=== PATIENT | male | born 1965 | race African-American/Black ===

== ENCOUNTER 2017-12-15 16:22 | Inpatient (IN) | payer OTHER ==
[~2017-12-15] VITALS: Ht 190.5 cm; Wt 182.8 kg
[2017-12-15] VITALS (9 sets, daily range): BP systolic 99–152; BP diastolic 62–91
--- NOTE | 2017-12-15 16:24 | ER Report ---
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 Has had 2 epsiodes of diarrhea on day one and resolved. Still having the vomiting. No abdominal pain. no fevers. no chills. Has some epigastric burning with the vomiting. No known sick contacts "you never know what people have at truck stops". Came in because he feels dehydrated. No abdominal surgery REVIEW OF SYSTEMS: Constitutional: No fever, no chills. Eyes: No discharge. ENT: No sore throat. Cardiovascular: No chest pain, no palpitations. Respiratory: No cough, no shortness of breath. Gastrointestinal: No abdominal pain, + vomiting, + diarrhea Genitourinary: No hematuria. Musculoskeletal: No back pain. Skin: No rashes. Neurological: No headache. Allergies: Coded Allergies: No Known Drug Allergies (Unverified , 12/15/17) Home Meds Reported Medications Hydrochlorothiazide (HYDROCHLOROTHIAZIDE) 25 Mg Tablet, 1 TAB PO QDAY, TAB 12/15/17 Lisinopril (LISINOPRIL) 20 Mg Tablet, 20 MG PO QDAY, TAB 12/15/17 Amlodipine Besylate (AMLODIPINE BESYLATE) 5 Mg Tablet, 1 TAB PO QDAY, TAB 12/15/17 Past Medical/Surgical History Pmhx: htn PshX: knee Reviewed Nurses Notes: Yes Old Medical Records Reviewed: Yes Hx Smoking: No Hx Alcohol Use: No Constitutional Vital Sign - Last 24 Hours 12/15/17 12/15/17 12/15/17 12/15/17 16:23 16:30 16:39 16:45 Temp 97.8 Pulse 100 88 Resp 20 B/P (MAP) 92/70 70/33 (45) 108/74 (85) 119/93 (102) Pulse Ox 92 12/15/17 12/15/17 12/15/17 12/15/17 17:00 17:15 17:30 17:45 Pulse 88 87 B/P (MAP) 101/74 (83) 111/62 (78) 116/75 (89) 116/90 (99) Pulse Ox 95 94 12/15/17 12/15/17 18:00 18:15 Pulse 87 B/P (MAP) 125/103 (110) 124/62 (82) Intake and Output 12/15/17 12/15/17 12/16/17 15:00 23:00 07:00 Intake Total 1050 ml Balance 1050 ml Physical Exam General Appearance: The patient is alert, has no immediate need for airway protection and no signs of toxicity. Eyes: Pupils equal and round no pallor or injection, EOMI ENT: no pharyngeal erythema or exudates, Mucous membranes are moist Respiratory: There are no retractions, lungs are clear to auscultation. Cardiovascular: Regular rate and rhythm. pulses are equal and symmetrical, + systolic ejection murmur Gastrointestinal: Abdomen is soft and non tender, no masses, bowel sounds normal, no guarding, no rigidity or rebound, + obese Neurological: Cranial nerves II-XII grossly intact, no sensory or motor loss Skin: Warm and dry, no rashes. Musculoskeletal: Neck is supple non tender, no vertebral tenderness Extremities are nontender, non swollen and have full range of motion. DIFFERENTIAL DIAGNOSIS: After history and physical exam differential diagnosis was considered for gastroenteritis, dehydration Medical Decision Making Data Points Result Diagram: 12/16/17 0512 12/16/17 0512 Laboratory Hematology Test 12/15/17 16:38 12/15/17 17:15 12/15/17 17:17 Hemoglobin A1c 13.4 % (4.6-6.0) Troponin I 0.027 ng/ml Lipase 184 U/L (23-300) Acetone, Qualitative Small Phosphorus Level 8.4 mg/dl (2.5-4.5) Iron Level 73 ug/dl (49-181) Total Iron Binding Capacity 239 ug/dl (261-497) Percent Iron Saturation 30.5 % Ferritin 598 ng/ml (18-464) Blood Gas Puncture Site Right radial Blood Gas Patient Temperature 97.8 DEGREES Arterial Blood pH 7.30 (7.35-7.45) Arterial Blood Partial Pressure CO2 36 mmHg (32-37) Arterial Blood Partial Pressure O2 77 mmHg (60-80) Arterial Blood HCO3 18 mmol/L (20-26) Arterial Blood Oxygen Saturation 94 % (92-100) Arterial Blood Base Excess -8.0 mmol/L Ty Test Acceptable Oxygen Liters/Minute 1.5l Chemistry Test 12/15/17 16:38 12/15/17 17:15 8/23/18 17:17 Hemoglobin A1c 13.4 % (4.6-6.0) Troponin I 0.027 ng/ml Lipase 184 U/L (23-300) Acetone, Qualitative Small Phosphorus Level 8.4 mg/dl (2.5-4.5) Iron Level 73 ug/dl (49-181) Total Iron Binding Capacity 239 ug/dl (261-497) Percent Iron Saturation 30.5 % Ferritin 598 ng/ml (18-464) Blood Gas Puncture Site Right radial Blood Gas Patient Temperature 97.8 DEGREES Arterial Blood pH 7.30 (7.35-7.45) Arterial Blood Partial Pressure CO2 36 mmHg (32-37) Arterial Blood Partial Pressure O2 77 mmHg (60-80) Arterial Blood HCO3 18 mmol/L (20-26) Arterial Blood Oxygen Saturation 94 % (92-100) Arterial Blood Base Excess -8.0 mmol/L Ty Test Acceptable Oxygen Liters/Minute 1.5l Toxicology Test 12/15/17 16:38 Acetone, Qualitative Small ED Course/Re-evaluation Clinical Indication for ER IV: Hydration, IV Access ED Course Lab called with critical blood sugar. Will obtain abg and acetone level. 12/15/2017 6:00:[address] Arrington who will admit pt to ICU. At this time pt does not have an insulin gtt. He wants to hold the drip to see how pt does with fluids and the sq insulin. states he will start a gtt in icu if pt does not respond. Decision to Disposition Date: Dec 15, 2017 Decision to Disposition Time: 18:00 Depart Departure Latest Vital Signs Vital Signs Date Time Temp Pulse Resp B/P (MAP) Pulse Ox O2 Delivery O2 Flow Rate FiO2 12/15/17 18:15 124/62 (82) 12/15/17 18:00 87 12/15/17 17:30 94 12/15/17 16:23 97.8 20 Impression: Primary Impression: Hyperglycemia Additional Impressions: Renal insufficiency Diabetes mellitus, new onset Condition: Critical Disposition: Admitted from ER Problem Qualifiers SPARKLE LEES DO Dec 15, 2017 16:24
[2017-12-15] MEDS ORDERED: FAMOTIDINE(*) 20MG/50ML PREMIX 50 ML IVPB ONE (16:28)
[2017-12-15] MEDS ORDERED: LR(*) 1000 ML BAG 1,000 ML IV ONE (16:28)
[2017-12-15] MEDS ORDERED: ONDANSETRON 4 MG/2 ML VIAL IVP ONE (16:30)
[2017-12-15 16:44] LABS: PLATELET COUNT, AUTOMATED 394 K/uL (150-450)
[2017-12-15] MEDS ORDERED: LISI20TA29 PO (17:20)
[2017-12-15] MEDS ORDERED: AMLO-96 PO (17:20)
[2017-12-15] MEDS ORDERED: HYDR-2966 PO (17:20)
--- NOTE | 2017-12-15 17:20 | EKG ---
FACILITY: [facility] [place]IENT NAME: CORTEZ DUPREE : [id number] MR: [id number] V: [id number] EXAM DATE: ORDERING PHYSICIAN: SPARKLE LEES TECHNOLOGIST: Test Reason : VOMITING Blood Pressure : / mmHG Vent. Rate : 090 BPM Atrial Rate : 090 BPM P-R Int : 152 ms QRS Dur : 098 ms QT Int : 400 ms P-R-T Axes : 071 013 063 degrees QTc Int : 489 ms Normal sinus rhythm Voltage criteria for left ventricular hypertrophy Nonspecific ST and T wave abnormality , peaked Twave V1-3 Prolonged QT Abnormal ECG No previous ECGs available Confirmed by Bill Nath ([id number]) on 12/15/2017 9:10:40 PM Referred By: Confirmed By:Bill Chavira
[2017-12-15] MEDS ORDERED: NS(*) 0.9% 1000 ML BAG 1,000 ML IV ONE (17:30)
[2017-12-15] MEDS ORDERED: INSU HUM REG 100 U/ML(ER ONLY) 10 ML VIAL SUBQ ONE (17:40)
[2017-12-15] MEDS ORDERED: NS(*) 0.9% 1000 ML BAG 1,000 ML IV PRN (19:25)
[2017-12-15] MEDS ORDERED: ONDANSETRON 4 MG/2 ML VIAL IVP PRN (19:55)
[2017-12-15] MEDS ORDERED: PROMETHAZINE 25 MG/ML 1 ML AMP IVP PRN (19:55)
[2017-12-15] MEDS ORDERED: INSULIN HUM REG 100 UN/ML 3 ML 100 UNIT in NS(*) 0.9% 100 ML BAG 99 ML IV SCH (20:00)
[2017-12-15] MEDS ORDERED: INSU HUM REG 100 U/ML(ER ONLY) 10 ML VIAL IV ONE (20:00)
[2017-12-15] MEDS ORDERED: PANTOPRAZOLE SOD 40 MG IV VIAL IVP SCH (20:00)
[2017-12-15] MEDS: INSULIN HUM REG 100 UN/ML 3 ML 100 UNIT in NS(*) 0.9% 100 ML BAG 99 ML IV SCH (20:07)
--- NOTE | 2017-12-15 20:34 | History & Physical ---
History of Present Illness Chief Complaint n/v dehydration History of Present Illness 52M with PMHx HTN presented after 3 days n/v. Noted diarrhea at onset and thought had gastroenteritis. Stopped in [place] in [place] and was Dx with Strep throat. Feeling worse on arrival in [place] and presented to [facility] ER. Glucose in 900's, HCO3 18, AGAP 26. Denies Hx DM though further questioning reports previously on metformin which PCP stopped because A1c was decreased. Reports 40lb weight loss over last 3 months with diet changes. History Problems: (1) HTN (hypertension) (2) DM (diabetes mellitus) (3) Obesity (BMI 30-39.9) Home Meds Reported Medications Hydrochlorothiazide (HYDROCHLOROTHIAZIDE) 25 Mg Tablet, 1 TAB PO QDAY, TAB 12/15/17 Lisinopril (LISINOPRIL) 20 Mg Tablet, 20 MG PO QDAY, TAB 12/15/17 Amlodipine Besylate (AMLODIPINE BESYLATE) 5 Mg Tablet, 1 TAB PO QDAY, TAB 12/15/17 Allergies: Coded Allergies: No Known Drug Allergies (Unverified , 12/15/17) Patient History: Diabetes mellitus (DM) FH: HTN (hypertension) Hx Smoking: No Hx Alcohol Use: No Hx Substance Use Disorder: No Review of Systems All Systems Reviewed/Normal: Yes, Except as Noted Neurological: Weakness Gastrointestinal: Nausea, Vomiting Exam Vital Signs Vital Signs Date Time Temp Pulse Resp B/P (MAP) Pulse Ox O2 Delivery O2 Flow Rate FiO2 12/15/17 19:30 84 16 129/91 (104) 95 Nasal Cannula 2.0 12/15/17 19:16 98.0 General Appearance: Alert, Awake, No Acute Distress Neuro: No Gross deficits Eyes: PERRLA ENT: Other (Dry mucosa) Neck: No Masses Cardiovascular: Normal Rhythm & Peripheral Pulses (3/6 systolic murmur VIKI sternal border.) Respiratory: No Respiratory Distress, Clear to Auscultation Chest: No Tenderness GI: Abd Soft and Non-Tender Lymph: Cervical Nodes Benign Musculoskeletal: No Weakness/Pain Extremities: Soft and Non Tender, Warm, Pulses, Perfused; No Edema Integumentary: Skin Intact without Lesion / Mass Psych: Alert & Oriented X3 Medical Decision Making Data Points Result Diagram: 12/15/17 1638 12/15/17 1840 EKG / Imaging Monitor Interpretation: Sinus Tachycardia Assessment and Plan Problems: (1) DKA (diabetic ketoacidosis) Assessment & Plan: HCO3 18, agap 26, glucose >900 on admission, pH 7.3. Appears more like HHS than DKA given type II but has significant anion gap, could be 2/2 starvation ketosis since no PO intake for 3 days. Admit to ICU, insulin gtt, IV NS, monitor K and glucose. K 5.4 on admission no need to give K at this time. Hgb A1c pending, c-peptide pending. (2) JAIMIE (acute kidney injury) Assessment & Plan: Per pt reports that his number believed to be 1.4, Cr on admission 3.4. Making urine, monitor urine output. IV fluid resuscitation. (3) HTN (hypertension) Assessment & Plan: Hypotensive on arrival, IV fluid resuscitation. Hold lisinopril/HCTZ, amlodipine. (4) Microcytosis Assessment & Plan: Unclear etiology, may be hemoconcentrated and is anemic. Recommend outpt colonoscopy if no previous given age. Iron panel pending. Venous Thromboembolism Antithrombotics Is Pt On Any Antithrombotics?: No (scd only) Exam Sepsis Risk: No Definite Risk ELI LUIGI SULLIVAN DO Dec 15, 2017 20:34
[2017-12-15] MEDS: PANTOPRAZOLE SOD 40 MG TABEC PO SCH (21:27)
[2017-12-16] VITALS (25 sets, daily range): BP systolic 87–169; BP diastolic 34–77; Ht 190.5 cm; Wt 182.8 kg
[2017-12-16] MEDS ORDERED: NS(*) 0.9% 1000 ML BAG 1,000 ML IV PRN (00:34)
[2017-12-16] MEDS: INSULIN HUM REG 100 UN/ML 3 ML 100 UNIT in NS(*) 0.9% 100 ML BAG 99 ML IV SCH ×2 (00:57→07:00)
[2017-12-16] MEDS ORDERED: KCL/D1/2NS 20 MEQ 1000 ML 1,000 ML IV PRN (04:10)
[2017-12-16 05:47] LABS: PLATELET COUNT, AUTOMATED 317 K/uL (150-450)
[2017-12-16] MEDS ORDERED: INSULIN GLARGINE 100 U/ML 3 ML PEN SUBQ SCH ×2 (08:00→08:53)
[2017-12-16] MEDS: INSULIN HUM LISPRO 100 UN/ML 3 ML VIAL SUBQ PRN ×3 (08:58→15:39)
--- NOTE | 2017-12-16 11:01 | Hospitalist Progress Note ---
Subjective Progress Notes Subjective The patient denies new complaints. Physical Exam Vital Signs Date Time Temp Pulse Resp B/P (MAP) Pulse Ox O2 Delivery O2 Flow Rate FiO2 12/16/17 10:00 76 14 132/67 (88) 94 Nasal Cannula 1.0 12/16/17 08:00 97.9 Intake and Output 12/16/17 07:00 Intake Total 6706 ml Output Total 875 ml Balance 5831 ml Intake Oral 3840 ml IV Total 2866 ml Output Urine Total 875 ml General Appearance: Alert, Awake, No Acute Distress Neuro: No Gross deficits Eyes: PERRLA Cardiovascular: Regular Rate and Rhythm Respiratory: Clear to Auscultation GI: Soft and Non-Tender Extremities: Warm, Perfused, Other (No edema.) Integumentary: Skin Intact without Lesion / Mass Psych: Appropriate Mood & Affect Result Diagram: 12/16/1751112/16/17511 Monitor Interpretation: Sinus Tachycardia Assessment and Plan Problems: (1) DKA (diabetic ketoacidosis) Assessment & Plan: On admission, HCO3 18, agap 26, glucose >900, pH 7.3. Appears more like HHS than DKA given type II but has significant anion gap, could be 2/2 starvation ketosis since no PO intake for 3 days. Admitted to ICU, insulin gtt, IV fluids given and electrolytes monitored closely. HgA1c ordered and is pending. Glucose down to the 200s overnight. Anion gap improved. Will start Lantus 20u today with breakfast with SSI and adjust doses as needed. Continue to monitor glucoses closely. Diabetic teaching ordered. His creatinine remains elevated and he will most likely not be a candidate for oral medications. Discussed this with the patient. He gets his care at the [facility]. He was seen 3 weeks ago for med refill but no labs were done. Last lab was at least a year ago per his report. With his 40# weight loss it is likely his sugars have been high for some time. He has been on metformin in the past per his report. (2) JAIMIE (acute kidney injury) Assessment & Plan: Per pt reports that his number believed to be 1.4, Cr on admission 3.4. Increased today to 3.8. Renal US pending. Making urine, continue to monitor urine output. Avoid renal toxins. (3) HTN (hypertension) Assessment & Plan: Hypotensive on admission, IV fluid resuscitation. Hold lisinopril/HCTZ, amlodipine. (4) Microcytosis Status: Chronic Assessment & Plan: The patient's RBCs are high. MCV is low. Hgb is normal. Iron level is normal. Possible thalassemia. Time Spent on Plan of Care: < 30 min Exam Sepsis Risk: No Definite Risk ROSALVA GOULD MD Dec 16, 2017 11:01
[2017-12-16] MEDS ORDERED: INS HUM REG* 100 U/ML(ER ONLY) 100 UNIT in NS(*) 0.9% 100 ML BAG 99 ML IV SCH (15:30)
[2017-12-16] MEDS ORDERED: INS HUM REG* 100 U/ML(ER ONLY) 100 UNIT in NS(*) 0.9% 100 ML BAG 99 ML IV PRN (15:35)
[2017-12-16] MEDS: NS(*) 0.9% 1000 ML BAG 1,000 ML IV PRN ×2 (15:39→23:30)
--- NOTE | 2017-12-16 15:40 | RADIOLOGY IMAGING REPORT ---
FACILITY: [facility] - [place] PATIENT NAME: Brock Gibbons : 1965 MR: [id number] V: [id number] EXAM DATE: ORDERING PHYSICIAN: LUIGI SULLIVAN TECHNOLOGIST: Location: [facility] Patient: Brock Gibbnos : 1965 Visit/Account:[id number] Date of Sevice: 12/16/2017 EXAMINATION: Renal ultrasound 12/16/2017 6:41 AM HISTORY: JAIMIE. COMPARISON STUDIES: none FINDINGS: Kidneys: Right kidney- 13.9 x 5.6 x 6.6 cm, normal parenchymal thickness and echogenicity. Anechoic 3.9 cm ex ophytic lower pole cortical cyst. Left kidney- 11.7 x 7.1 x 7.3 cm, normal parenchymal thickness and echogenicity. Uniform and symmetric blood flow in each kidney by Doppler ultrasound. Measured resistive indices ar e 0.67 on the right and 0.66 on the left. Hydronephrosis: none Bladder: Minimal (less than 5 mL) urine in the bladder post void, not likely clinically significant. Abdominal aorta and IVC: Patent by Doppler ultrasound IMPRESSION: 1. Unremarkable ultrasound appearance of the kidneys apart from an exophytic benign-appearing 3.9 cm lower pole cortical cyst on the right. 2. No significant postvoid residual in the bladder. Report Dictated By: Daryn Elias MD at 12/16/2017 3:34 PM Report E-Signed By: Daryn Elias MD at 12/16/2017 3:37 PM WSN:[id number]
[2017-12-16] MEDS: INSULIN HUM REG 100 UN/ML 3 ML 100 UNIT in NS(*) 0.9% 100 ML BAG 100 ML IV SCH (21:29)
[2017-12-16] MEDS: PANTOPRAZOLE SOD 40 MG TABEC PO SCH (22:24)
[2017-12-17] VITALS (24 sets, daily range): BP systolic 85–148; BP diastolic 41–90
[2017-12-17] MEDS: NS(*) 0.9% 1000 ML BAG 1,000 ML IV PRN ×4 (07:20→23:28)
--- NOTE | 2017-12-17 10:00 | Hospitalist Progress Note ---
Subjective Progress Notes Subjective This patient was admitted for hyperglycemia and renal failure. He had no acute issues overnight. Patient Complains of: Cardiovascular: No: Chest Pain Respiratory: No: Shortness of Breath Physical Exam Vital Signs Date Time Temp Pulse Resp B/P (MAP) Pulse Ox O2 Delivery O2 Flow Rate FiO2 12/17/17 09:08 77 12/17/17 09:00 13 94/41 (58) 91 Room Air 12/17/17 08:13 1.0 12/17/17 08:00 97.9 Intake and Output 12/17/17 07:00 Intake Total 6449.7 ml Output Total 550 ml Balance 5899.7 ml Intake Oral 3660 ml IV Total 2789.7 ml Output Urine Total 550 ml # Voids 1 # Bowel Movements 1 Neuro: No Gross deficits Eyes: PERRLA Cardiovascular: Regular Rate and Rhythm, Other (Systolic murmur.) Respiratory: Clear to Auscultation GI: Soft and Non-Tender Extremities: No Edema Integumentary: No Cyanosis Result Diagram: 12/16/17 0512 12/17/17 0530 Item Value Date Time Urine Hyaline Casts Many /LPF H 12/17/17 0756 Monitor Interpretation: Sinus Tachycardia Assessment and Plan Problems: (1) DKA (diabetic ketoacidosis) Assessment & Plan: He did have a glucose of >900 and was mildly acidotic at admission. He was treated with IV fluid and IV insulin. An attempt was made to stop IV insulin yesterday, but failed. He remains on an insulin infusion through today, and it is our intention to continue this through the better part of today. (2) JAIMIE (acute kidney injury) Assessment & Plan: He was significantly dehydrated and hypotensive at admission, which has likely resulted in acute tubular necrosis. We have increased his fluids and will continue to monitor his output and creatinine. (3) ATN (acute tubular necrosis) (4) HTN (hypertension) Assessment & Plan: He is usually on chronic treatment with amlodipine, lisinopril, and hydrochlorothiazide. All of this have been on hold secondary to his renal function and intermittent hypotension. (5) Microcytosis Status: Chronic Assessment & Plan: The patient's RBCs are high. MCV is low. Hgb is normal. Iron level is normal. Possible thalassemia. (6) Heart murmur Assessment & Plan: He does have a new heart murmur. An echocardiogram has been ordered. (7) Strep pharyngitis Assessment & Plan: He reports that he was diagnosed with "Strep throat" a few days ago at the [facility]. He has taken 3 days worth of antibiotics. A throat culture has been ordered. Exam Sepsis Risk: No Definite Risk Problem Qualifiers (1) HTN (hypertension): Hypertension type: essential hypertension Qualified Codes: I10 - Essential (primary) hypertension AMILCAR ARIAS DO Dec 17, 2017 10:00
--- NOTE | 2017-12-17 13:38 | Medical Nutrition Therapy ---
Nutrition Anthropometrics Height (Inches): 75.00 Height (Calculated Centimeters: 190.682315 Weight (Pounds): 406 Weight (Calculated Kilograms): 184.584 Kole Nutrition Score: Adequate Kole Nutrition Risk Score: 21 Dietary Referral Nutrition Risk Factors: Nutrition Risk Comment: Physical Findings Physical Appearance: Morbidly Obese 40+ Skin Appearance Skin Appearance: Edema Edema Location Modifier: Edema Location: Type of Edema: Degree of Edema: Gastrointestinal Symptoms GI Symtoms: Change in Bowel Pattern Tube Present: Bowel Sounds: Recent Bowel Pattern: Stool Characteristics: Nutritional Diagnosis Nutritional Risk Acuity 1: Acute/ES Renal Nutritional Risk Acuity 2: Blood Glucose > 300mg/dl, DKA Nutritional Risk Acuity 3: Nausea, Morbid Obesity Nutritional Risk Acuity 4: Modified Diet Past Medical History: Hx of HTN, DM, Obesity Nutritional Acuity: 1-High Nutrition Diagnosis: Inconsistent Carb. Intake Nutrition Etiology: Skipping Meals Nutrition Problem/Etiology/Sym: Inconsistent carb intake related to skipping meals as evidenced by elevated blood glc levels between 900's-200's Adjusted Energy Requirement Re: 2300 (5068-4954 adj for obesity (hamwi for wt x 1.3-1.4 AF [place])) Protein Requirement: 75 (75-82 (adj for wt)) Fluid Requirement: 2250 Diet Type: Diabetic Nutrition Intervention: Cont diet as ordered, Encourage intake Nutritional Education Nutrition Education Topic: Diabetic Nutrition Learning Barriers: Cognitive Teaching Methods: Discussion, Handout Response to Teaching: Verbalize understanding, Reinforcement needed Teaching Recipient: Patient Nutrition Counseling: I met with pt to talk about following diabetic diet. Pt was very sleepy but it sounded like he understood the basic concept of limiting carbohydrate foods. He said that his wt loss was due to decreasing "white foods" and that his girlfriend has been helping. We talked about getting between 45-60g carb per meal and 15-30g for snacks. we talked about appropriate foods. Since he was so sleepy, he may need reinforcement. -EK Nutrition Monitoring & Eval RD Patient Assessment Time: [address] Assessment Type: RD Education Patient Nutrition Acuity: 1-High Follow Up Date: Dec 17, 2017 Nutritional Comment: 12/16. Admitted for nausea, vomitting, diarrhea for 3 days, and dehydration. Pt is being treated for diabetic ketoacidosis, acute renal injury, HTN, and Microcytosis. Pts glucose on admission was >900. Pt denied hx of DM. Noted pt was on Metformin in the past but PCP stopped that b/c A1C was decreased. Pt has not had intake for the past 3 days. Is currenlty on diabetic diet, with no meals to report at this time. Random BG is elevated 225, but is improving. Pt is receiving 10 units Lantus SUBQ and 2-10 Lispro SS SUBQ. Other noteable labs include: elevated BUN 73 and Creatinine 3.8. Pt is 75in, 390lbs, and a BMI of 48.7, morbid obese. Will monitor pt intake, and BG. 12/17 Met with pt for basic DM education. He was very sleepy and may need further education, but he seems to understand basic concept. Currently on ADA diet with intake of 75-100% of meals. Notable labs include Na 131, BUN 78, creatinine 4.8, glc ranging 260-306 today (in the 500's yesterday). Will cont to monitor and encourage intake. -CRYSTAL CROW Dec 17, 2017 13:38
[2017-12-17] MEDS: INSULIN HUM REG 100 UN/ML 3 ML 100 UNIT in NS(*) 0.9% 100 ML BAG 100 ML IV SCH (17:13)
[2017-12-17] MEDS ORDERED: SALINE 0.65% NAS SPR 44 ML BTL PRN (17:40)
[2017-12-17] MEDS: PANTOPRAZOLE SOD 40 MG TABEC PO SCH (21:15)
[2017-12-17] MEDS ORDERED: methylPREDNIS SUCC 125 MG/2ML IVP ONE (23:35)
[2017-12-18] VITALS (24 sets, daily range): BP systolic 111–159; BP diastolic 58–99
[2017-12-18] MEDS: NS(*) 0.9% 1000 ML BAG 1,000 ML IV PRN ×3 (05:13→20:55)
[2017-12-18 05:45] LABS: PLATELET COUNT, AUTOMATED 216 K/uL (150-450)
[2017-12-18] MEDS ORDERED: GLIMEPIRIDE 2 MG TAB PO SCH (09:00)
--- NOTE | 2017-12-18 10:51 | Medical Nutrition Therapy ---
Nutrition Anthropometrics Height (Inches): 75.00 Height (Calculated Centimeters: 190.224359 Weight (Pounds): 406 Weight (Calculated Kilograms): 184.584 Kole Nutrition Score: Adequate Kole Nutrition Risk Score: 21 Dietary Referral Nutrition Risk Factors: Nutrition Risk Comment: Physical Findings Physical Appearance: Morbidly Obese 40+ Skin Appearance Skin Appearance: Edema Edema Location Modifier: Edema Location: Type of Edema: Degree of Edema: Gastrointestinal Symptoms GI Symtoms: Change in Bowel Pattern Tube Present: Bowel Sounds: Recent Bowel Pattern: Stool Characteristics: Nutritional Diagnosis Nutritional Risk Acuity 1: Acute/ES Renal Nutritional Risk Acuity 2: Blood Glucose > 300mg/dl, DKA Nutritional Risk Acuity 3: Nausea, Morbid Obesity Nutritional Risk Acuity 4: Modified Diet Past Medical History: Hx of HTN, DM, Obesity Nutritional Acuity: 1-High Nutrition Diagnosis: Inconsistent Carb. Intake Nutrition Etiology: Skipping Meals Nutrition Problem/Etiology/Sym: Inconsistent carb intake related to skipping meals as evidenced by elevated blood glc levels between 900's-200's Adjusted Energy Requirement Re: 2300 (3094-6251 adj for obesity (hamwi for wt x 1.3-1.4 AF [place])) Protein Requirement: 75 (75-82 (adj for wt)) Fluid Requirement: 2250 Diet Type: Diabetic Nutrition Intervention: Cont diet as ordered, Encourage intake Nutrition Monitoring & Eval RD Patient Assessment Time: [address] Assessment Type: RD Education Patient Nutrition Acuity: 1-High Follow Up Date: Dec 20, 2017 Nutritional Comment: 12/16. Admitted for nausea, vomitting, diarrhea for 3 days, and dehydration. Pt is being treated for diabetic ketoacidosis, acute renal injury, HTN, and Microcytosis. Pts glucose on admission was >900. Pt denied hx of DM. Noted pt was on Metformin in the past but PCP stopped that b/c A1C was decreased. Pt has not had intake for the past 3 days. Is currenlty on diabetic diet, with no meals to report at this time. Random BG is elevated 225, but is improving. Pt is receiving 10 units Lantus SUBQ and 2-10 Lispro SS SUBQ. Other noteable labs include: elevated BUN 73 and Creatinine 3.8. Pt is 75in, 390lbs, and a BMI of 48.7, morbid obese. Will monitor pt intake, and BG. 8/25 Met with pt for basic DM education. He was very sleepy and may need further education, but he seems to understand basic concept. Currently on ADA diet with intake of 75-100% of meals. Notable labs include Na 131, BUN 78, creatinine 4.8, glc ranging 260-306 today (in the 500's yesterday). Will cont to monitor and encourage intake. -ANGELY 12/18 Pt reports having more energy today. Good intake. BG between 280-310 today. -CRYSTAL CROW Dec 18, 2017 10:51
[2017-12-18] MEDS: INSULIN HUM LISPRO 100 UN/ML 3 ML VIAL SUBQ PRN ×5 (11:39→21:09)
--- NOTE | 2017-12-18 12:04 | Hospitalist Progress Note ---
Subjective Progress Notes Subjective He reports more energy today. No problems overnight. On the insulin drip at 4 units/hr Physical Exam Vital Signs Date Time Temp Pulse Resp B/P (MAP) Pulse Ox O2 Delivery O2 Flow Rate FiO2 12/18/17 11:09 94 Room Air 12/18/17 11:00 81 23 153/78 (103) 12/18/17 08:00 96.9 12/18/17 07:30 1.0 Intake and Output 12/18/17 07:00 Intake Total 5656.5 ml Output Total 3470 ml Balance 2186.5 ml Intake Oral 1300 ml IV Total 4356.5 ml Output Urine Total 3470 ml General Appearance: Alert, Awake, No Acute Distress Cardiovascular: Regular Rate and Rhythm (2/6 sys ejection murmur) Respiratory: Clear to Auscultation Extremities: No Edema Result Diagram: 12/18/1751512/18/17515 Monitor Interpretation: Sinus Tachycardia Assessment and Plan Problems: (1) DKA (diabetic ketoacidosis) Assessment & Plan: He presented with nausea and vomiting. He did have a glucose of >900 and was mildly acidotic at admission. He was treated with IV fluid and IV insulin. An attempt was made on 12/16 to switch to Lantus, but he had to be restarted on the insulin drip because glucose increased. He will be switched to Amaryl/Januvia (renally dosed) today. His C-Peptide was a bit high and he would rather not be on SQ medications if possible. Continue glucose checks q2 hours with SSI level 3 to cover before meals. He received a dose of m ethylprednisolone last night for concern of gout, so that could complicate the glucose control. No further foot complaints. (2) JAIMIE (acute kidney injury) Assessment & Plan: He was significantly dehydrated and hypotensive at admission, which has likely resulted in acute tubular necrosis. His creatinine increased to peak at 4.8 on 12/18. Today, after hydration, it is down to 2.5. His fluid rate has been decreased from 200cc/hr to 100cc/hr. (3) HTN (hypertension) Assessment & Plan: He is usually on chronic treatment with amlodipine, lisinopril, and hydrochlorothiazide. All of this have been on hold secondary to his renal function and intermittent hypotension. (4) Microcytosis Status: Chronic Assessment & Plan: The patient's RBCs are high. MCV is low. Hgb is normal. Iron level is normal. Possible thalassemia. (5) Heart murmur Assessment & Plan: He does have a new heart murmur. An echocardiogram showed mild aortic stenosis, but a preserved EF. He will need to bring a copy of the report [facility]. (6) Strep pharyngitis Assessment & Plan: He reports that he was diagnosed with "Strep throat" a few days ago at the [facility]. He has taken 3 days worth of antibiotics. A throat culture has been ordered. Exam Sepsis Risk: No Definite Risk Problem Qualifiers (1) HTN (hypertension): Hypertension type: essential hypertension Qualified Codes: I10 - Essential (primary) hypertension MEHRAN FONG MD Dec 18, 2017 12:04
[2017-12-18] MEDS: PANTOPRAZOLE SOD 40 MG TABEC PO SCH (20:54)
[2017-12-19] VITALS (21 sets, daily range): BP systolic 119–188; BP diastolic 75–146
[2017-12-19 05:43] LABS: PLATELET COUNT, AUTOMATED 245 K/uL (150-450)
[2017-12-19] MEDS ORDERED: metFORMIN HCL 500 MG TAB PO SCH (09:00)
[2017-12-19] MEDS ORDERED: GLIMEPIRIDE 2 MG TAB PO SCH (09:00)
[2017-12-19] MEDS: metFORMIN HCL 500 MG TAB PO SCH ×2 (09:40→17:05)
--- NOTE | 2017-12-19 12:52 | Medical Nutrition Therapy ---
Nutrition Anthropometrics Height (Inches): 75.00 Height (Calculated Centimeters: [phone] Weight (Pounds): 419 Weight (Calculated Kilograms): 190.055 Kole Nutrition Score: Probably Inadequate Kole Nutrition Risk Score: 18 Dietary Referral Nutrition Risk Factors: Nutrition Risk Comment: Physical Findings Physical Appearance: Morbidly Obese 40+ Skin Appearance Skin Appearance: Edema Edema Location Modifier: Edema Location: Type of Edema: Degree of Edema: Gastrointestinal Symptoms GI Symtoms: Change in Bowel Pattern Tube Present: Bowel Sounds: Recent Bowel Pattern: Stool Characteristics: Nutritional Diagnosis Nutritional Risk Acuity 1: Acute/ES Renal Nutritional Risk Acuity 2: Blood Glucose > 300mg/dl, DKA Nutritional Risk Acuity 3: Morbid Obesity Nutritional Risk Acuity 4: Modified Diet Past Medical History: Hx of HTN, DM, Obesity Nutritional Acuity: 1-High Nutrition Diagnosis: Inconsistent Carb. Intake Nutrition Etiology: Skipping Meals Nutrition Problem/Etiology/Sym: Inconsistent carb intake related to skipping meals as evidenced by elevated blood glc levels between 900's-200's Adjusted Energy Requirement Re: 2300 (9601-6371 adj for obesity (hamwi for wt x 1.3-1.4 AF [place])) Protein Requirement: 75 (75-82 (adj for wt)) Fluid Requirement: 2250 Diet Type: Diabetic Nutrition Intervention: Cont diet as ordered, Encourage intake Nutrition Monitoring & Eval RD Patient Assessment Time: [address] Assessment Type: RD Re-Assessment Patient Nutrition Acuity: 1-High Follow Up Date: Dec 23, 2017 Nutritional Comment: 12/16. Admitted for nausea, vomitting, diarrhea for 3 days, and dehydration. Pt is being treated for diabetic ketoacidosis, acute renal injury, HTN, and Microcytosis. Pts glucose on admission was >900. Pt denied hx of DM. Noted pt was on Metformin in the past but PCP stopped that b/c A1C was decreased. Pt has not had intake for the past 3 days. Is currenlty on diabetic diet, with no meals to report at this time. Random BG is elevated 225, but is improving. Pt is receiving 10 units Lantus SUBQ and 2-10 Lispro SS SUBQ. Other noteable labs include: elevated BUN 73 and Creatinine 3.8. Pt is 75in, 390lbs, and a BMI of 48.7, morbid obese. Will monitor pt intake, and BG. 12/17 Met with pt for basic DM education. He was very sleepy and may need further education, but he seems to understand basic concept. Currently on ADA diet with intake of 75-100% of meals. Notable labs include Na 131, BUN 78, creatinine 4.8, glc ranging 260-306 today (in the 500's yesterday). Will cont to monitor and encourage intake. -EK 12/18 Pt reports having more energy today. Good intake. BG between 280-310 today. -EK 12/19. Diabetic cont, consuming 75-100% regular size meals. Pt cont receiving 250mg Metformin BID and 3-15 units Lispro SS SUBQ. Noteable labs include: low Hgb 12.6, Hct 39, sodium 135, and CO2 21. Elevated labs include: WBC 13.9, BUN 45, Creatinine 1.8, Whole BG 458, and Random BG 378. Noticed 18lb weight gain since admission, likely due to fluid fluctuation from IV fluids. Will cont to monitor BG levels. EMILIA HAMPTONA Dec 19, 2017 12:45
--- NOTE | 2017-12-19 12:57 | Hospitalist Progress Note ---
Subjective Progress Notes Subjective 52M admitted for hyperglycemia, DKA, JAIMIE. Renal function improving, glucose difficult to control. Patient Complains of: Neurological: No: Syncope, Confusion, Weakness Cardiovascular: No: Chest Pain Respiratory: No: Cough, Congestion Gastrointestinal: No Nausea, No Vomiting Genitourinary: No Dysuria Physical Exam Vital Signs Date Time Temp Pulse Resp B/P (MAP) Pulse Ox O2 Delivery O2 Flow Rate FiO2 12/19/17 11:00 84 16 147/84 (105) 93 Room Air 12/19/17 08:00 97.8 12/19/17 04:23 2.0 Intake and Output 12/19/17 07:00 Intake Total 6606 ml Output Total 4650 ml Balance 1956 ml Intake Oral 3800 ml IV Total 2806 ml Output Urine Total 4650 ml General Appearance: No Acute Distress Neuro: No Gross deficits Eyes: PERRLA ENT: Normal Neck: No Masses Cardiovascular: Normal Rhythm & Peripheral Pulses Respiratory: No Respiratory Distress Chest: No Tenderness GI: Soft and Non-Tender Musculoskeletal: No Weakness/Pain Extremities: Soft and Non Tender, Edema Integumentary: Skin Intact without Lesion / Mass Psych: Alert & Oriented X3 Result Diagram: 12/19/17 0515 12/19/17 0515 Monitor Interpretation: Sinus Tachycardia Assessment and Plan Problems: (1) DKA (diabetic ketoacidosis) Assessment & Plan: He presented with nausea and vomiting. He did have a glucose of >900 and was mildly acidotic at admission. He was treated with IV fluid and IV insulin. An attempt was made on 12/16 to switch to Lantus, but he had to be restarted on the insulin drip because glucose increased. His C-Peptide was a bit high and he would rather not be on SQ medications if possible. Continue glucose checks ACHS, holding SSI level 3 to cover before meals to see if PO can cover. On Apruv, Amaryl, metformin. He received a dose of methylprednisolone . for concern of gout, so that could complicate the glucose control. No further foot complaints. (2) JAIMIE (acute kidney injury) Assessment & Plan: He was significantly dehydrated and hypotensive at admission, which has likely resulted in acute tubular necrosis. His creatinine increased to peak at 4.8 on 12/18. Improving, nearing suspected baseline. (3) HTN (hypertension) Assessment & Plan: He is usually on chronic treatment with amlodipine, lisinopril, and hydrochlorothiazide. All of this have been on hold secondary to his renal function and intermittent hypotension. (4) Microcytosis Status: Chronic Assessment & Plan: The patient's RBCs are high. MCV is low. Hgb is normal. Iron level is normal. Possible thalassemia. (5) Heart murmur Assessment & Plan: He does have a new heart murmur. An echocardiogram showed mild aortic stenosis, but a preserved EF. He will need to bring a copy of the report to [facility]. (6) Strep pharyngitis Assessment & Plan: He reports that he was diagnosed with "Strep throat" a few days ago at the [facility]. He has taken 3 days worth of antibiotics. A throat culture growing GPC, he is asymptomatic. Exam Sepsis Risk: No Definite Risk Problem Qualifiers (1) HTN (hypertension): Hypertension type: essential hypertension Qualified Codes: I10 - Essential (primary) hypertension LUIGI BANKS DO Dec 19, 2017 12:57
[2017-12-19] MEDS ORDERED: amLODIPine BESYL(*) 5 MG TAB PO ONE (19:30)
[2017-12-19] MEDS: PANTOPRAZOLE SOD 40 MG TABEC PO SCH (21:17)
[2017-12-19] MEDS: INSULIN HUM LISPRO 100 UN/ML 3 ML VIAL SUBQ PRN ×2 (21:19→21:24)
[2017-12-20] VITALS (7 sets, daily range): BP systolic 137–194; BP diastolic 71–146
[2017-12-20] MEDS ORDERED: hydrALAZINE HCL 20 MG/ML VIAL IVP PRN (00:05)
[2017-12-20 05:40] LABS: PLATELET COUNT, AUTOMATED 216 K/uL (150-450)
[2017-12-20] MEDS ORDERED: APAP/HYDROCODONE 325/5 TAB PO PRN (06:35)
[2017-12-20] MEDS ORDERED: metFORMIN HCL 500 MG TAB PO SCH (08:00)
[2017-12-20] MEDS: amLODIPine BESYL(*) 5 MG TAB PO SCH (08:56)
[2017-12-20] MEDS: LISINOPRIL 20 MG TAB PO SCH (08:56)
[2017-12-20] MEDS: INSULIN GLARGINE 100 U/ML 3 ML PEN SUBQ SCH (09:19)
[2017-12-20] MEDS: INSULIN HUM LISPRO 100 UN/ML 3 ML VIAL SUBQ PRN ×4 (09:20→21:00)
[2017-12-20] MEDS ORDERED: ACETAMINOPHEN 325 MG TAB PO PRN (10:45)
--- NOTE | 2017-12-20 10:53 | Hospitalist Progress Note ---
Subjective Progress Notes Subjective This patient was admitted for hyperglycemia. He had no acute issues overnight. Patient Complains of: Cardiovascular: No: Chest Pain Respiratory: No: Shortness of Breath Physical Exam Vital Signs Date Time Temp Pulse Resp B/P (MAP) Pulse Ox O2 Delivery O2 Flow Rate FiO2 12/20/17 07:41 98.6 92 14 161/104 (123) 92 Room Air 12/19/17 04:23 2.0 Intake and Output 12/20/17 06:59 Intake Total 3193 ml Output Total 6410 ml Balance -3217 ml Intake Oral 3130 ml IV Total 63 ml Output Urine Total 6410 ml # Voids 1 Cardiovascular: Regular Rate and Rhythm Respiratory: Clear to Auscultation Result Diagram: 12/20/17 0516 12/20/17 0516 Item Value Date Time Throat Culture - Final Complete 12/17/17 0906 Throat Strep Agalactiae Hemolytic Monitor Interpretation: Sinus Tachycardia Assessment and Plan Problems: (1) DKA (diabetic ketoacidosis) Assessment & Plan: He presented with nausea and vomiting. He did have a glucose of >900 and was mildly acidotic at admission. He was treated with IV fluid and IV insulin. An attempt was made on 12/16 to switch to Lantus, but he had to be restarted on the insulin drip because glucose increased. His sugars have remained poorly controlled after starting oral medications. We have placed him on Lantus with sliding scale coverage. (2) JAIMIE (acute kidney injury) Assessment & Plan: He was significantly dehydrated and hypotensive at admissi on, which has likely resulted in acute tubular necrosis. His renal function has been improving with Iv fluids. (3) HTN (hypertension) Assessment & Plan: He is usually on chronic treatment with amlodipine, lisinopril, and hydrochlorothiazide. His amlodipine has been restarted and his dose increased. We have restarted the lisinopril today. (4) Microcytosis Status: Chronic Assessment & Plan: The patient's RBCs are high. MCV is low. Hgb is normal. Iron level is normal. Possible thalassemia. (5) Heart murmur Assessment & Plan: He does have a new heart murmur. An echocardiogram showed mild aortic stenosis, but a preserved EF. (6) Strep pharyngitis Assessment & Plan: He reports that he was diagnosed with "Strep throat" a few days ago at the [facility]. He has taken 3 days worth of antibiotics. A throat culture is positive for Streptococcus agalactiae. He has been placed on amoxicillin. Exam Sepsis Risk: No Definite Risk Problem Qualifiers (1) HTN (hypertension): Hypertension type: essential hypertension Qualified Codes: I10 - Essential (primary) hypertension AMILCAR ARIAS DO Dec 20, 2017 10:53
[2017-12-20] MEDS: AMOXICILLIN 500 MG CAP PO SCH ×2 (12:27→21:00)
--- NOTE | 2017-12-20 14:46 | Medical Nutrition Therapy ---
Nutrition Anthropometrics Height (Inches): 75.00 Height (Calculated Centimeters: 190.398439 Weight (Pounds): 409 Weight (Calculated Kilograms): 185.519 Kole Nutrition Score: Adequate Kole Nutrition Risk Score: 20 Dietary Referral Nutrition Risk Factors: Nutrition Risk Comment: Physical Findings Physical Appearance: Morbidly Obese 40+ Skin Appearance Skin Appearance: Edema Edema Location Modifier: Edema Location: Type of Edema: Degree of Edema: Gastrointestinal Symptoms GI Symtoms: Change in Bowel Pattern Tube Present: Bowel Sounds: Recent Bowel Pattern: Stool Characteristics: Nutrition/Food History Non-compliant W/Diet Nutritional Diagnosis Nutritional Risk Acuity 1: Acute/ES Renal Nutritional Risk Acuity 2: Blood Glucose > 300mg/dl, DKA Nutritional Risk Acuity 3: Morbid Obesity Nutritional Risk Acuity 4: Modified Diet Past Medical History: Hx of HTN, DM, Obesity Nutritional Acuity: 1-High Nutrition Diagnosis: Inconsistent Carb. Intake Nutrition Etiology: Skipping Meals Nutrition Problem/Etiology/Sym: Inconsistent carb intake related to skipping meals as evidenced by elevated blood glc levels between 900's-200's Adjusted Energy Requirement Re: 2300 (2465-4894 adj for obesity (hamwi for wt x 1.3-1.4 AF [place])) Protein Requirement: 75 (75-82 (adj for wt)) Fluid Requirement: 2250 Diet Type: Diabetic Nutrition Intervention: Cont diet as ordered, Encourage intake Food Likes: Every meal wants a torres type yogurt. Nutritional Education Nutrition Education Topic: Diabetic Nutrition Learning Barriers: Hx Of Non-Compliance Learning Readiness: Interested Teaching Methods: Discussion, Handout Response to Teaching: Verbalize understanding, Reinforcement needed Teaching Recipient: Patient Nutrition Monitoring & Eval RD Patient Assessment Time: [address] Assessment Type: RD Education Patient Nutrition Acuity: 1-High Follow Up Date: Dec 23, 2017 Nutritional Comment: 12/16. Admitted for nausea, vomitting, diarrhea for 3 days, and dehydration. Pt is being treated for diabetic ketoacidosis, acute renal injury, HTN, and Microcytosis. Pts glucose on admission was >900. Pt denied hx of DM. Noted pt was on Metformin in the past but PCP stopped that b/c A1C was decreased. Pt has not had intake for the past 3 days. Is currenlty on diabetic diet, with no meals to report at this time. Random BG is elevated 225, but is improving. Pt is receiving 10 units Lantus SUBQ and 2-10 Lispro SS SUBQ. Other noteable labs include: elevated BUN 73 and Creatinine 3.8. Pt is 75in, 390lbs, and a BMI of 48.7, morbid obese. Will monitor pt intake, and BG. 12/17 Met with pt for basic DM education. He was very sleepy and may need further education, but he seems to understand basic concept. Currently on ADA diet with intake of 75-100% of meals. Notable labs include Na 131, BUN 78, creatinine 4.8, glc ranging 260-306 today (in the 500's yesterday). Will cont to monitor and encourage intake. -EK 12/18 Pt reports having more energy today. Good intake. BG between 280-310 today. -EK 12/19. Diabetic cont, consuming 75-100% regular size meals. Pt cont receiving 250mg Metformin BID and 3-15 units Lispro SS SUBQ. Noteable labs include: low Hgb 12.6, Hct 39, sodium 135, and CO2 21. Elevated labs include: WBC 13.9, BUN 45, Creatinine 1.8, Whole BG 458, and Random BG 378. Noticed 18lb weight gain since admission, likely due to fluid fluctuation from IV fluids. Will cont to monitor BG levels. MR 12/20 Reviewed diabetes meal planning with pt. 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 Pt states he will follow meal plan and appears to understand importance of controlling carbs to control blood sugar levels. Encourage pt to follw meal plan. -CHARLES LOPEZ Dec 20, 2017 14:46
[2017-12-20] MEDS: PANTOPRAZOLE SOD 40 MG TABEC PO SCH (21:00)
[2017-12-21 00:13] VITALS: BP 149/96
[2017-12-21 05:57] VITALS: BP 141/73
[2017-12-21 07:25] VITALS: BP 145/95
[2017-12-21] MEDS: INSULIN HUM LISPRO 100 UN/ML 3 ML VIAL SUBQ PRN ×3 (08:14→16:55)
[2017-12-21] MEDS: INSULIN HUM LISPRO 100 UN/ML 3 ML VIAL SUBQ SCH ×3 (08:14→16:54)
[2017-12-21] MEDS: AMOXICILLIN 500 MG CAP PO SCH ×2 (08:50→20:41)
[2017-12-21] MEDS: LISINOPRIL 20 MG TAB PO SCH (08:50)
[2017-12-21] MEDS: amLODIPine BESYL(*) 5 MG TAB PO SCH (08:50)
[2017-12-21] MEDS: INSULIN GLARGINE 100 U/ML 3 ML PEN SUBQ SCH ×2 (08:51→20:42)
--- NOTE | 2017-12-21 10:05 | Hospitalist Progress Note ---
Subjective Progress Notes Subjective He reports doing well "just a little tired". Glucoses have marginally improved. Physical Exam Vital Signs Date Time Temp Pulse Resp B/P (MAP) Pulse Ox O2 Delivery O2 Flow Rate FiO2 12/21/17 05:57 98.6 89 20 141/73 (95) 89 Room Air 12/19/17 04:23 2.0 Intake and Output 12/21/17 06:59 Intake Total 2477 ml Output Total 1200 ml Balance 1277 ml Intake Oral 2477 ml Output Urine Total 1200 ml # Voids 1 General Appearance: Alert, Awake Cardiovascular: Regular Rate and Rhythm (with soft systolic murmur) Respiratory: Clear to Auscultation Result Diagram: 12/20/17 0516 12/20/17 0516 Item Value Date Time Whole Blood Glucose 267 mg/DL H 12/21/17 0725 Whole Blood Glucose 354 mg/DL H 12/20/17 2059 Whole Blood Glucose 385 mg/DL H 12/20/17 1612 Whole Blood Glucose 356 mg/DL H 12/20/17 1217 Whole Blood Glucose 345 mg/DL H 12/20/17 0737 Assessment and Plan Problems: (1) DKA (diabetic ketoacidosis) Assessment & Plan: He presented with nausea and vomiting. He did have a glucos e of >900 and was mildly acidotic at admission. The acidosis is probably due to acute renal failure and "starvation" rather than DKA. He was treated with IV fluid and IV insulin. An attempt was made on 12/16 to switch to subcutaneous Lantus, but he had to be restarted on the insulin drip because glucose increased dramatically. His sugars remained poorly controlled after starting oral medications. We have now placed him on Lantus 40 units BID with sliding scale coverage. 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 He can petition for a waiver after he has good control of his diabetes. He reports understanding of this. (2) JAIMIE (acute kidney injury) Assessment & Plan: He was significantly dehydrated and hypotensive at admission, which has likely resulted in acute tubular necrosis. His renal function has been improving with IV fluids. Recheck lab in AM. (3) HTN (hypertension) Assessment & Plan: He is usually on chronic treatment with amlodipine, lisinopril, and hydrochlorothiazide. His amlodipine has been restarted and his dose modified. We have restarted the lisinopril yesterday as well. Monitor. (4) Microcytosis Status: Chronic Assessment & Plan: The patient's RBCs are high. MCV is low. Hgb is normal. Iron level is normal. Possible thalassemia. (5) Heart murmur Assessment & Plan: He does have a heart murmur. An echocardiogram showed mild aortic stenosis, but a preserved EF. (6) Strep pharyngitis Assessment & Plan: He reports that he was diagnosed with "Strep throat" a few days ago at the [facility]. He has taken 3 days worth of antibiotics. A throat culture is positive for Streptococcus agalactiae. He has been placed on amoxicillin. Exam Sepsis Risk: No Definite Risk Problem Qualifiers (1) DKA (diabetic ketoacidosis): Diabetes mellitus type: type 2 (2) HTN (hypertension): Hypertension type: essential hypertension Qualified Codes: I10 - Essential (primary) hypertension ADITYA GOULD MD Dec 21, 2017 10:05
[2017-12-21 11:28] VITALS: BP 135/83
--- NOTE | 2017-12-21 14:38 | Antimicrobial Stewardship ---
Antimicrobial Stewardship MD Service: Hospitalist Indications: Other (Hyperglycemia) Antimicrobial Allergies NKDA Antimicrobial History Pt reports he was diagnosed with Strep Throat at [facility] and took 3 days of antibiotics prior to admission. Antimicrobial Used Amoxicillin PO Start Date: Dec 20, 2017 Height (Calculated Centimeters: [phone] Weight (Calculated Kilograms): 181.664 Culture Results: Yes (Group A Strep agalactiae, hemolytic) Patient Improving Clinically: Yes Tolerating Oral Fluids: Yes Able to Absorb PO Meds: Yes Patient on Vasopressor?: No Taking Other Meds PO: Yes Received >24 hr of IV Abx: Yes Afebrile > 24 hrs: Yes Heart Rate < or = 90 bpm: Yes RR < or = 20 bpm: Yes SBP > or = 90 mm Hg: Yes Improving Signs and Symptoms: Yes Comments Started on PO for Strep Pharyngitis; no IV antimicrobials ordered/administered. SEBLE SAINI Dec 21, 2017 14:38
[2017-12-21 15:09] VITALS: BP 129/80
[2017-12-21 19:13] VITALS: BP 153/102
[2017-12-21] MEDS: PANTOPRAZOLE SOD 40 MG TABEC PO SCH (20:45)
[2017-12-21] MEDS ORDERED: INSULIN GLARGINE 100 U/ML 3 ML PEN SUBQ SCH (21:00)
[2017-12-22 05:33] VITALS: BP 122/77
[2017-12-22 05:48] LABS: PLATELET COUNT, AUTOMATED 251 K/uL (150-450)
[2017-12-22 07:30] VITALS: BP 151/93
[2017-12-22] MEDS: INSULIN HUM LISPRO 100 UN/ML 3 ML VIAL SUBQ SCH ×3 (07:33→17:07)
[2017-12-22] MEDS: INSULIN HUM LISPRO 100 UN/ML 3 ML VIAL SUBQ PRN ×3 (07:33→17:09)
[2017-12-22] MEDS: INSULIN GLARGINE 100 U/ML 3 ML PEN SUBQ SCH (08:56)
[2017-12-22] MEDS: AMOXICILLIN 500 MG CAP PO SCH (08:56)
[2017-12-22] MEDS: LISINOPRIL 20 MG TAB PO SCH (08:56)
[2017-12-22] MEDS: amLODIPine BESYL(*) 5 MG TAB PO SCH (08:56)
[2017-12-22 11:47] VITALS: BP 144/96
[2017-12-22] MEDS ORDERED: INSU100I30 SUBQ (13:26)
[2017-12-22] MEDS ORDERED: INSU100V24 SUBQ (13:26)
[2017-12-22] MEDS ORDERED: AMLO-96 PO (13:26)
[2017-12-22] MEDS ORDERED: LISI20TA29 PO (13:26)
--- NOTE | 2017-12-22 13:31 | Hospitalist Depart ---
Discharge Summary Reason for Hosp/Final Diag: (1) DKA (diabetic ketoacidosis) Hospital Course & Plan: He presented with nausea and vomiting. He did have a glucose of >900 and was mildly acidotic at admission. The acidosis is probably due to acute renal failure and "starvation" rather than DKA. He was treated with IV fluid and IV insulin. An attempt was made on 12/16 to switch to subcutaneous Lantus, but he had to be restarted on the insulin drip because glucose increased dramatically. His sugars remained poorly controlled after starting oral medications. We have now placed him on Lantus 40 units BID with HumaLog 14 units TIDWM. 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 He can petition for a waiver after he has good control of his diabetes. He reports understanding of this. (2) JAIMIE (acute kidney injury) Hospital Course & Plan: He was significantly dehydrated and hypotensive at admission, which has likely resulted in acute tubular necrosis. His renal function has been improving with IV fluids. Cr stable at 1.4 at discharge, appears to have mild CKD. (3) HTN (hypertension) Hospital Course & Plan: He is usually on chronic treatment with amlodipine, lisinopril, and hydrochlorothiazide. Discharged on updated doses of lisinopril and amlodipine. (4) Microcytosis Status: Chronic Hospital Course & Plan: The patient's RBCs are high. MCV is low. Hgb is normal. Iron level is normal. Possible thalassemia. (5) Heart murmur Hospital Course & Plan: He does have a heart murmur. An echocardiogram showed mild aortic stenosis, but a preserved EF. (6) Strep pharyngitis Hospital Course & Plan: He reports that he was diagnosed with "Strep throat" a few days ago at the [facility]. He has taken 3 days worth of antibiotics. A throat culture is positive for Streptococcus agalactiae. Completed treatment with amoxicillin. Departure Weight (Pounds): 403 Weight (Ounces): 8.0 Result Diagram: 12/22/1752712/22/17527 Condition: Improved Discharge: Home Follow-Up Labs: Finger Sticks Discharge Instructions Home Meds Active Scripts Lisinopril (LISINOPRIL) 20 Mg Tablet, 20 MG PO QDAY for 30 Days, TAB Prov:LUIGI BANKS DO 12/22/17 Insulin Lispro 100 Un/Ml Vial (HUMALOG 100 U/ML VIAL) 100 Unit/1 Ml Vial, 14 UNIT SUBQ TIDAC for 30 Days, #2 VIAL Prov:SREEDHAR SULLIVANLUIGI 12/22/17 Insulin Glargine 100 Un/Ml Pen (LANTUS SOLOSTAR PEN) 100 Unit/1 Ml Insuln.pen, 40 UNIT SUBQ BID for 30 Days, #2400 UNITS Prov:LUIGI BANKS DO 12/22/17 Amlodipine Besylate (AMLODIPINE BESYLATE) 5 Mg Tablet, 10 MG PO QDAY for 30 Days, #30 TAB Prov:LUIGI BANKS DO 12/22/17 Discontinued Reported Medications Hydrochlorothiazide (HYDROCHLOROTHIAZIDE) 25 Mg Tablet, 1 TAB PO QDAY, TAB 12/15/17 Amlodipine Besylate (AMLODIPINE BESYLATE) 5 Mg Tablet, 1 TAB PO QDAY, TAB 12/15/17 Diet: Diabetic Activity: As Tolerated Special Instructions: Schedule follow up with PCP within one week. Venous Thromboembolism Antithrombotics Is Pt On Any Antithrombotics?: No (scd only) Problem Qualifiers (1) DKA (diabetic ketoacidosis): Diabetes mellitus type: type 2 (2) HTN (hypertension): Hypertension type: essential hypertension Qualified Codes: I10 - Essential (primary) hypertension LUIGI BANKS DO Dec 22, 2017 13:31
[2017-12-22 15:35] VITALS: BP 162/108
== END 2017-12-22 18:30 | disposition home or self-care (01) | DRG 637 ==
LOC: ER 16:27 → ICU 18:57 → MED 12-20 13:20
PROVIDERS: ADMIT Internal Medicine; ATTEND Internal Medicine
DX: E11.10 Type 2 diabetes mellitus with ketoacidosis without coma (principal); N17.0 Acute kidney failure with tubular necrosis; Z68.43 Body mass index [BMI] 50.0-59.9, adult; E86.0 Dehydration; I10 Essential (primary) hypertension; I95.9 Hypotension, unspecified; D56.9 Thalassemia, unspecified; I35.8 Other nonrheumatic aortic valve disorders; I35.0 Nonrheumatic aortic (valve) stenosis; J02.0 Streptococcal pharyngitis; E66.9 Obesity, unspecified; T73.0XXA Starvation, initial encounter
CPT/HCPCS: 36415; 36416; 36600; 76705; 81001; 82009; 82040; 82247; 82310; 82374; 82435; 82565; 82728; 82803; 82947; 82948; 83036; 83540; 83550; 83690; 83735; 84075; 84100; 84132; 84155; 84295; 84450; 84460; 84484; 84520; 84681; 85025; 87070; 87077; 87186; 93005; 93306; 96365; 96366; 96368; 96375; 99284; J0360; J1815; J2405; J2550; J2930; J3480; J3490; J7030; J7050; J7120

== ENCOUNTER → 2017-12-15 | Outpatient (CLI) | payer OTHER ==
[~2017-12-15] MED LIST: AMLO-96 PO; HYDR-2966 PO; LISI20TA29 PO
[2017-12-16 08:14] VITALS: BMI 48.7
== END ==
LOC: AMB 15:59
PROVIDERS: ATTEND Nurse Practitioner
DX: E86.0 Dehydration (principal); R11.2 Nausea with vomiting, unspecified; R53.1 Weakness
CPT/HCPCS: A0425; A0427